=== PATIENT | female | born 1990 | race African-American/Black ===

== ENCOUNTER 2016-12-26 22:20 | Emergency (ER) | payer OTHER, MEDICAID ==
[~2016-12-26] VITALS: Ht 172.7 cm; Wt 95.0 kg
[~2016-12-26 22:20] MED LIST: LACTATED RINGERS 1,000 ML IV SCH; PNV1TABL76 MT
[2016-12-27] MEDS ORDERED: SODIUM CHLORIDE 0.9% 1,000 ML IV ONE ×2 (02:24→03:47)
[2016-12-27] MEDS ORDERED: ACETAMINOPHEN 325MG TABLET PO STA (02:24)
[2016-12-27 02:42] LABS: BASOPHILS % 0.6 % (0.0-2.0); EOSINOPHILS % 1.1 % (0.0-5.0); HEMATOCRIT. 31.6 % (36.0-48.0); HEMOGLOBIN. 10.1 g/dL (12.0-16.0); LYMPHOCYTES % 17.9 % (20.0-50.0); MEAN CORPUSCULAR HEMOGLOBIN 28.9 pg (28.0-32.0); MEAN CORPUSCULAR VOLUME 90.1 fL (81.0-99.0); MEAN PLATELET VOLUME 9.8 fl (7.4-10.4); MONOCYTES % 10.6 % (2.0-8.0); NEUTROPHILS % 69.8 % (40.0-76.0); PLATELET 201 x1000/uL (130-400); RED CELL DISTRIBUTION WIDTH 14.8 % (11.6-14.6)
[2016-12-27 02:47] LABS: CHLORIDE 109 mEq/L (98-107)
[2016-12-27 03:03] LABS: CARBON DIOXIDE 24 mEq/L (21-32)
[2016-12-27 03:09] LABS: B-HCG QUANTITATIVE 18098 mIU/mL (<3)
[2016-12-27 07:39] LABS: CLARITY URINE CLOUDY (CLEAR); COLOR URINE YELLOW (YELLOW); GLUCOSE URINE 1+ (NEGATIVE); KETONES URINE NEGATIVE (NEGATIVE); LEUKOCYTE ESTERASE URINE NEGATIVE (NEGATIVE); NITRITE URINE NEGATIVE (NEGATIVE); OCCULT BLOOD URINE NEGATIVE (NEGATIVE); PROTEIN URINE NEGATIVE (NEGATIVE); SPECIFIC GRAVITY URINE 1.018 (1.005-1.030); UROBILINOGEN URINE 0.2 E.U./dL (0.2-1.0)
[2016-12-27 10:14] VITALS: BP 128/72
== END 2016-12-27 10:18 | disposition home or self-care (01) ==
LOC: EDSTATUS 22:20 → ER 22:21
DX: O26.892 Other specified pregnancy related conditions, second trimester (principal); R10.30 Lower abdominal pain, unspecified; Z3A.20 20 weeks gestation of pregnancy
CPT/HCPCS: 36415; 76805; 80048; 81001; 84702; 85025; 86850; 86900; 86901; 96360; 96361; 99285; C1893; J7030; J7120; Z7610

== ENCOUNTER 2017-01-17 18:39 | Emergency (ER) | payer OTHER, MEDICAID ==
[~2017-01-17] VITALS: Ht 172.7 cm; Wt 105.0 kg
[~2017-01-17 18:39] MED LIST changes: -LACTATED RINGERS 1,000 ML IV SCH
[2017-01-17] MEDS ORDERED: ACETAMINOPHEN 325MG TABLET PO ONE (23:45)
[2017-01-18 00:32] VITALS: BP 129/75
[2017-01-18 01:26] LABS: HCG SCREEN POSITIVE
== END 2017-01-18 03:13 | disposition home or self-care (01) ==
LOC: ER 19:24 → UNDOADMOB 19:30 → L&D 19:30 → UNDODISOB 20:00 → ER 01-18 03:13
DX: O26.892 Other specified pregnancy related conditions, second trimester (principal); M25.561 Pain in right knee; M25.562 Pain in left knee; Z3A.23 23 weeks gestation of pregnancy
CPT/HCPCS: 84703; 93970; 99281; 99285

== ENCOUNTER 2017-04-02 13:40 | Observation (INO) | payer OTHER, MEDICAID ==
[~2017-04-02] VITALS: Ht 172.7 cm; Wt 108.9 kg
[2017-04-02] MEDS ORDERED: LACTATED RINGERS 1,000 ML IV SCH (14:45)
[2017-04-02 15:55] LABS: CLARITY URINE CLEAR (CLEAR); COLOR URINE YELLOW (YELLOW); KETONES URINE NEGATIVE (NEGATIVE); LEUKOCYTE ESTERASE URINE NEGATIVE (NEGATIVE); NITRITE URINE NEGATIVE (NEGATIVE); OCCULT BLOOD URINE 2+ (NEGATIVE); PH URINE 5.5 (4.5-8.0); PROTEIN URINE NEGATIVE (NEGATIVE); SPECIFIC GRAVITY URINE 1.036 (1.005-1.030); UROBILINOGEN URINE 0.2 E.U./dL (0.2-1.0)
== END 2017-04-02 17:05 | disposition home or self-care (01) ==
LOC: L&D 13:40
PROVIDERS: ADMIT Obstetrics & Gynecology; ATTEND Obstetrics & Gynecology
DX: O26.853 Spotting complicating pregnancy, third trimester (principal); Z3A.34 34 weeks gestation of pregnancy
CPT/HCPCS: 76805; 76818; 81001; 99281; G0378; 96360; 96361

== ENCOUNTER 2017-04-19 12:55 | Observation (INO) | payer OTHER, MEDICAID ==
[~2017-04-19] VITALS: Ht 172.7 cm; Wt 108.9 kg
== END 2017-04-19 15:45 | disposition home or self-care (01) ==
LOC: L&D 12:55
PROVIDERS: ADMIT Obstetrics & Gynecology; ATTEND Obstetrics & Gynecology
DX: O42.913 Preterm premature rupture of membranes, unspecified as to length of time between rupture and onset of labor, third trimester (principal); Z3A.36 36 weeks gestation of pregnancy
CPT/HCPCS: 76815; 76818; 99281; G0378

== ENCOUNTER 2019-10-24 18:10 | Emergency (ER) | payer MEDICAID, OTHER ==
[~2019-10-24] VITALS: Ht 175.3 cm; Wt 109.0 kg
[2019-10-24 18:20] VITALS: BP 153/99
== END 2019-10-24 21:09 | disposition home or self-care (01) ==
LOC: ER 18:10
DX: S70.362A Insect bite (nonvenomous), left thigh, initial encounter (principal); W57.XXXA Bitten or stung by nonvenomous insect and other nonvenomous arthropods, initial encounter; Y93.89 Activity, other specified; Y92.89 Other specified places as the place of occurrence of the external cause; Y99.8 Other external cause status
CPT/HCPCS: 81025; 99282